=== PATIENT | female | born 1980 | race American Indian/Alaskan Native ===

== ENCOUNTER 2018-02-19 16:13 | Emergency (ER) | payer OTHER ==
[2018-02-19 16:42] VITALS: BP 119/68
--- NOTE | 2018-02-19 17:45 | Emergency Department Report ---
ED Headache HPI - General Chief Complaint: Headache Stated Complaint: LIGHTHEADED/HEADACHE Source: patient - History of Present Illness Initial Comments: This is a 37-year-old -[place] female who presents with a headache for 1 month. Patient reports headache is intermittent and feels like pressure in sooner spell. No past medical history. History of gastric bypass 2 years ago. She reports it feels as if able ball was sitting on top of her head. She also reports he used the lightheaded feeling. The headache does not have an aura. It is intermittent and usually lasts 6-20 hours. Patient states she has never e xperienced an headache prior to this. She also reports an attempt to give blood and was told her hematocrit was 21. She called her primary care provider is in [place] and he advised her to follow-up in office. Patient states she no longer have a vehicle to follow up in [place] so she came in for evaluation. She denies visual changes, fever, neck stiffness, chest pain, shortness of breath, nausea vomiting, or myalgia. Timing/Duration: increasing, other (6-20 hours) Quality: pressure Head Injury Location: occipital Recent Head Trauma: no recent headache/trauma Associated Symptoms: other (lightheaded). denies: confusion, fatigue, facial pain, fever/chills, flushing, loss of consciousness, nausea/vomiting, nasal congestion, nasal drainage, numbness in legs/feet, rash, seizures, sinus infection, stiff neck, vision changes, weakness Allergies/Adverse Reactions: Allergies No Known Allergies Allergy (Unverified 02/19/18 19:22) Home Medications: Ambulatory Orders Butalb/Acetamin/Caff 50-325-40 [Fioricet] 1 tab PO Q8HR PRN #8 tablet 02/19/18 Ferrous Sulfate [Slow Fe] 142 mg PO BID #60 tablet.er 02/19/18 ED Review of Systems ROS: Stated complaint: LIGHTHEADED/HEADACHE Other details as noted in HPI Constitutional: denies: chills, fever ENT: denies: ear pain, throat pain Respiratory: denies: cough, shortness of breath, wheezing Cardiovascular: denies: chest pain, palpitations Gastrointestinal: denies: abdominal pain, nausea, diarrhea Neurological: headache. denies: weakness, paresthesias Psychiatric: denies: anxiety, depression ED Past Medical Hx - Past Medical History Previous Medical History?: No - Surgical History Past Surgical History?: Yes Additional Surgical History: Gastric Bypass - Social History Smoking Status: Current Every Day Smoker Substance Use Type: None - Medications Home Medications: Home Medications Medication Instructions Recorded Confirmed Last Taken Type Butalb/Acetamin/Caff 50-325-40 1 tab PO Q8HR PRN #8 tablet 02/19/18 Unknown Rx [Fioricet] Ferrous Sulfate [Slow Fe] 142 mg PO BID #60 tablet.er 02/19/18 Unknown Rx ED Physical Exam - General Limitations: No Limitations General appearance: alert, in no apparent distress, obese - ENT ENT exam: Present: mucous membranes moist - Neck Neck exam: Present: normal inspection. Absent: meningismus, lymphadenopathy, thyromegaly - Respiratory Respiratory exam: Present: normal lung sounds bilaterally. Absent: respiratory distress - Cardiovascular Cardiovascular Exam: Present: regular rate, normal rhythm. Absent: systolic murmur, diastolic murmur, rubs, gallop - GI/Abdominal GI/Abdominal exam: Present: soft, normal bowel sounds. Absent: distended, tend erness, guarding, rebound, rigid, organomegaly, mass - Neurological Exam Neurological exam: Present: alert, oriented X3 - Psychiatric Psychiatric exam: Present: normal affect, normal mood - Skin Skin exam: Present: warm, dry, intact, normal color. Absent: rash ED Course Vital Signs 02/19/18 16:38 Temperature 98.2 F Pulse Rate 85 Respiratory 16 Rate Blood Pressure 119/68 O2 Sat by Pulse 100 Oximetry ED Medical Decision Making - Lab Data Result diagrams: 02/19/18 19:01 Lab Results 02/19/18 Range/Units 19:01 WBC 4.5 (4.5-11.0) K/mm3 RBC 4.65 (3.65-5.03) M/mm3 Hgb 8.1 L (10.1-14.3) gm/dl Hct 26.6 L (30.3-42.9) % MCV 57 L (79-97) fl MCH 18 L (28-32) pg MCHC 31 (30-34) % RDW 17.7 H (13.2-15.2) % Plt Count 371 (140-440) K/mm3 - Radiology Data Radiology results: report reviewed FINAL REPORT EXAM: CT HEAD/BRAIN WO CON HISTORY: new onset headache TECHNIQUE: CT examination of the head without IV contrast PRIORS: None. FINDINGS: No acute air-fluid level visualized in the included air-filled sinuses. Bone windows demonstrate no acute fracture. The brain is without mass, mass effect, hemorrhage, or acute infarct. There is no extra-axial intracranial bleed, brain bleed, or midline shift. The ventricles and sulci are age-appropriate. IMPRESSION: No acute CVA, intracranial bleed, or brain mass - Medical Decision Making This is a 37 y.o. female that presents with headache for one month. No history of migraines. Patient is stable and was examined by me. Vitals are normal and patient is in no acute distress. Pain CBC and CT of head obtained and dictated by radiologist. No acute CVA, intracranial bleed, or brain mass. Given Toradol 30 mg IM once in ER. Start Fioricet for migraines and slow FE for anemia. Discharged home stable. No further questions noted by the patient. Follow up with PCP in 24-72 hours. Critical care attestation.: If time is entered above; I have spent that time in minutes in the direct care of this critically ill patient, excluding procedure time. ED Disposition Clinical Impression: Migraine Qualifiers: Migraine type: without aura Status migrainosus presence: without status migrainosus Intractability: not intractable Qualified Code(s): G43.009 - Dennis tara without aura, not intractable, without status migrainosus Anemia Qualifiers: Anemia type: unspecified type Qualified Code(s): D64.9 - Anemia, unspecified Disposition: DC-01 TO HOME OR SELFCARE Is pt being admited?: No Does the pt Need Aspirin: No Condition: Stable Instructions: Anemia (ED), Migraine Headache (ED) Additional Instructions: Take medication at start of headache. Moderate caffeine intake. Eat at scheduled times or 3 meals a day with snacks. Follow up with primary care provider in 24-72 hours. Prescriptions: Butalb/Acetamin/Caff 50-325-40 [Fioricet] 1 tab PO Q8HR PRN #8 tablet PRN Reason: Headache Ferrous Sulfate [Slow Fe] 142 mg PO BID #60 tablet.er Referrals: [facility], [facility] [Provider Group] - 3-5 Days [facility] [Provider Group] - 3-5 Days [facility] [Provider Group] - 3-5 Days Forms: Work/School Release Form(ED) Time of Disposition: 19:44
[2018-02-19] MEDS ORDERED: TORADOL IM ONE (17:57)
--- NOTE | 2018-02-19 18:25 | Cat Scan Report ---
FINAL REPORT EXAM: CT HEAD/BRAIN WO CON HISTORY: new onset headache TECHNIQUE: CT examination of the head without IV contrast PRIORS: None. FINDINGS: No acute air-fluid level visualized in the included air-filled sinuses. Bone windows demonstrate no acute fracture. The brain is without mass, mass effect, hemorrhage, or acute infarct. There is no extra-axial intracranial bleed, brain bleed, or midline shift. The ventricles and sulci are age-appropriate. IMPRESSION: No acute CVA, intracranial bleed, or brain mass
[2018-02-19 19:25] LABS: Hematocrit 26.6 % (30.3-42.9); Hemoglobin 8.1 gm/dl (10.1-14.3); Mean Corpuscular HGB Conc 31 % (30-34); Platelet Count 371 K/mm3 (140-440); Red Blood Count 4.65 M/mm3 (3.65-5.03); Red Cell Distribution Width 17.7 % (13.2-15.2)
[2018-02-19 19:28] LABS: Mean Corpuscular Volume 57 fl (79-97)
== END 2018-02-19 19:50 | disposition home or self-care (01) ==
LOC: ED 16:13
DX: G43.009 Migraine without aura, not intractable, without status migrainosus (principal); D64.9 Anemia, unspecified; F17.200 Nicotine dependence, unspecified, uncomplicated
CPT/HCPCS: 36415; 70450; 84703; 85027; 96372; 99284; J1885